=== PATIENT | female | born 1940 | race African-American/Black ===

== ENCOUNTER 2018-04-05 09:49 | Emergency (ER) | payer MEDICARE, MEDICAID | END 2018-04-05 10:18 | disposition home or self-care (01) | LOC: BURERS 09:49 | DX: I10 Essential (primary) hypertension (principal); E78.5 Hyperlipidemia, unspecified; F17.220 Nicotine dependence, chewing tobacco, uncomplicated; F32.9 Major depressive disorder, single episode, unspecified | CPT/HCPCS: 99283 ==